=== PATIENT | male | born 1975 | race Caucasian/White ===

== ENCOUNTER 2018-12-14 09:07 | Emergency (ER) | payer BC | END 2018-12-14 13:05 | disposition home or self-care (01) | LOC: FER 09:07 ==

== ENCOUNTER 2018-12-15 10:16 | Emergency (ER) | payer BC ==
[2018-12-15 10:40] VITALS: BMI 29.1
--- NOTE | 2018-12-15 11:19 | PDOC ---
History of Present Illness - History of Present Illness Initial Comments: 12/15/18 11:47 The patient is a 43 year old male, with no significant past medical history, who presents to the emergency department with nausea, vomiting, epigastric pain since Friday. The patient states he drank ETOH on Friday, developed his symptoms on Friday morning which prompted both an urgent care visit on Friday and a [facility] visit last night. He states he was advised against taking zofran upon his ED discharge yesterday due to prolonged QT however, reportedly took zofran prior to ED arrival with improvement of his nausea. Secondarily, he reports daily marijuana use, however, states he tried to smoke yesterday but could not due to his throat pain which he attributes to persistent vomiting. He reports his emesis is NBNB. He reports multiple episodes. He reports associated epigastric pain which is mild and localized. He denies recent travels or sick contacts. The patient denies chest pain, shortness of breath, headache and dizziness. The patient denies fever, chills, diarrhea and constipation. The patient denies dysuria, frequency, urgency and hematuria. Allergies: NKDA <Arianna Montanez - Last Filed: 12/15/18 11:47> - General History Source: Patient Exam Limitations: No Limitations <Terrie Arshad - Last Filed: 12/15/18 14:48> - General Chief Complaint: Nausea/Vomiting Stated Complaint: SENT BY PCP Time Seen by Provider: 12/15/18 11:19 Past History <Arianna Montanez - Last Filed: 12/15/18 11:47> - Past Medical History COPD: No GI Disorders: Yes (ACID REFLUX) - Surgical History Appendectomy: Yes - Suicide/Smoking/Psychosocial Hx Smoking History: Never smoked Have you smoked in the past 12 months: No 'Breaking Loose' booklet given: 12/14/18 Hx Alcohol Use: No Drug/Substance Use Hx: Yes (marijuana) <Terrie Arshad - Last Filed: 12/15/18 14:48> - Past Medical History Allergies/Adverse Reactions: Allergies Allergy/AdvReac Type Severity Reaction Status Date / Time No Known Allergies Allergy Verified 12/15/18 10:34 Home Medications: Ambulatory Orders Omeprazole 40 mg PO DAILY 12/14/18 Sucralfate Oral Suspension [Carafate *Oral Susp*] 1 gm PO BID PRN 10 Days #1 bottle 12/14/18 Citalopram Hydrobromide [Celexa -] 20 mg PO DAILY 12/15/18 Dicyclomine HCl [Bentyl -] 20 mg PO Q8H #21 tablet 12/15/18 Finasteride 0 mg PO DAILY 12/15/18 Mag Hydrox/Alh/Smc/Dpha/Lido [Magic Mouthwash *Sjr Formula*] 5 ml MM Q6H PRN #1 bottle 12/15/18 Metoclopramide HCl [Reglan] 10 mg PO BID PRN #20 tablet 12/15/18 Omeprazole 40 mg PO DAILY #30 tablet. 12/15/18 Review of Systems - Review of Systems Able to Perform ROS?: Yes Comments:: 12/15/18 11:47 CONSTITUTIONAL: Absent: fever, no chills, no fatigue EYES: Absent: visual changes ENT: Absent: ear pain, no sore throat CARDIOVASCULAR: Absent: chest pain, no palpitations RESPIRATORY: Absent: cough, no SOB GASTROINTESTINAL: (+) epigastric abdominal pain, nausea,vomiting,Absent: no constipation, no diarrhea GENITOURINARY: Absent: dysuria, no frequency, no hematuria MUSCULOSKELETAL: Absent: back pain, no arthralgia, no myalgia SKIN: Absent: rash NEURO: Absent: headache <Arianna Montanez - Last Filed: 12/15/18 11:47> *Physical Exam - Vital Signs Last Vital Signs Temp Pulse Resp BP Pulse Ox 97.7 F 63 18 100/63 99 12/15/18 10:34 12/15/18 10:34 12/15/18 10:34 12/15/18 10:34 12/15/18 10:34 - Physical Exam Comments: 12/15/18 11:47 GENERAL: The patient is in no acute distress. HEAD: Normal with no signs of trauma. EYES: PERRLA, EOMI, sclera anicteric, conjunctiva clear. ENT: (+) dry mucous membranes. superficial scabbing to lower lip. Ears normal, nares patent, oropharynx clear without exudates. NECK: Normal range of motion, supple without lymphadenopathy, JVD, or masses. LUNGS: Breath sounds equal, clear to auscultation bilaterally. No wheezes, and no crackles. HEART:Regular rate and rhythm, normal S1 and S2 without murmur, rub or gallop. ABDOMEN: (+) epigastric ttp. Soft, normoactive bowel sounds. No guarding, no rebound. No masses palpable. EXTREMITIES: Normal range of motion, no edema. No clubbing or cyanosis. No erythema, or tenderness. NEUROLOGICAL: Cranial nerves II through XII grossly intact. Normal speech. No focal neurological deficits. MUSCULOSKELETAL: Back non-tender to palpation, no CVA tenderness SKIN: Warm, Dry, normal turgor, no rashes or lesions noted. <Arianna Montanez - Last Filed: 12/15/18 11:47> - Vital Signs Last Vital Signs Temp Pulse Resp BP Pulse Ox 97.7 F 63 18 100/63 99 12/15/18 10:34 12/15/18 10:34 12/15/18 10:34 12/15/18 10:34 12/15/18 10:34 <Terrie Arshad - Last Filed: 12/15/18 14:48> Moderate Sedation - Procedure Monitoring Vital Signs: Procedure Monitoring Vital Signs Temperature 97.7 F 12/15/18 10:34 Pulse Rate 63 12/15/18 10:34 Respiratory Rate 18 12/15/18 10:34 Blood Pressure 100/63 12/15/18 10:34 O2 Sat by Pulse Oximetry (%) 99 12/15/18 10:34 <Arianna Montanez - Last Filed: 12/15/18 11:47> - Procedure Monitoring Vital Signs: Procedure Monitoring Vital Signs Temperature 97.7 F 12/15/18 10:34 Pulse Rate 63 12/15/18 10:34 Respiratory Rate 18 12/15/18 10:34 Blood Pressure 100/63 12/15/18 10:34 O2 Sat by Pulse Oximetry (%) 99 12/15/18 10:34 <Terrie Arshad - Last Filed: 12/15/18 14:48> ED Treatment Course - LABORATORY CBC & Chemistry Diagram: 12/15/18 11:30 12/15/18 11:30 <Arianna Montanez - Last Filed: 12/15/18 11:47> - LABORATORY CBC & Chemistry Diagram: 12/15/18 11:30 12/15/18 11:30 <Terrie Arshad - Last Filed: 12/15/18 14:48> Medical Decision Making - Medical Decision Making 12/15/18 11:51 43 yo m h/o gastritis presenting to the ER with epigastric pain, intractable vomiting Was seen at [facility] yesterday Seen by GI who referred pt to the ER for evaluation No fevers, chills No recent travel No ill contacts No uncooked foods Pt did go out drinking a few days ago Pt thinks this is related to his drinking EKG: NSR rate of 60 bpm, L axis deviation, no st elevation or depression, t waves upright, no pathological Q waves, nml r wave progression Will do: Labs CT Meds IVF Re Assess 12/15/18 13:14 Laboratory Tests 12/15/18 12/15/18 12/15/18 11:30 11:30 11:30 WBC 12.6 H Hgb 14.5 Hct 41.7 Plt Count 272 BUN 8 Creatinine 0.9 AST 100 H ALT 105 H Urine Blood 1+ H Urine Nitrite Negative Ur Leukocyte Esterase Negative 12/15/18 13:14 Laboratory Tests 12/14/18 12/14/18 12/15/18 09:26 09:26 11:30 WBC 22.8 H 12.6 H Total Bilirubin 1.3 H AST 71 H ALT 37 12/15/18 11:30 WBC Total Bilirubin AST 100 H ALT 105 H Increased transaminitis Decreased WBC Will await CT results 12/15/18 14:40 CT negative Upon re assessment, pt states he feels better Will discharge to home Will re fill Reglan, Omeprazole, Bentyl <Terrie Arshad - Last Filed: 12/15/18 14:48> *DC/Admit/Observation/Transfer - Attestations Scribe Attestion: 12/15/18 11:48 Documentation prepared by Arianna Montanez, acting as medical office receptionist for Terrie Arshad MD <Arianna Montanez - Last Filed: 12/15/18 11:47> - Discharge Dispostion Decision to Admit order: No <Terrie Arshad - Last Filed: 12/15/18 14:48> Diagnosis at time of Disposition: Nausea & vomiting Qualifiers: Vomiting type: unspecified Vomiting Intractability: non-intractable Qualified Code(s): R11.2 - Nausea with vomiting, unspecified - Discharge Dispostion Disposition: HOME Condition at time of disposition: Stable - Patient Instructions Printed Discharge Instructions: DI for Vomiting -- Adult Additional Instructions: Thank you for coming in to the ER please use medications as prescribed Please return to the ER for any other concerns or complaints Please review you CT results, please follow up the nodules found on CT with your doctor Also follow up the bone island findings with your doctor - Post Discharge Activity Forms/Work/School Notes: Back to Work
[2018-12-15] MEDS ORDERED: SODIUM CHLORIDE 1,000 ML IV STA (11:44)
[2018-12-15] MEDS ORDERED: FAMOTIDINE 20 MG/50 ML IVPB 20 MG/50 ML MG IVPB ONE ×2 (11:44→12:01)
[2018-12-15] MEDS ORDERED: MAG HYDROX/AL HYDROX/SIMETH 30 ML UNIT-DOSE CUP PO ONE (11:44)
[2018-12-15 11:47] LABS: BASO % 0.5 % (0-2.0); EOS % 0.5 % (0-4.5); HEMATOCRIT 41.7 % (35.4-49); HEMOGLOBIN 14.5 GM/dL (11.7-16.9); LYMPH % 18.2 % (8-40); MCH 30.2 pg (25.7-33.7); MCHC 34.7 g/dl (32.0-35.9); MEAN CELL VOLUME 87.1 fl (80-96); MEAN PLT VOLUME 8.9 fl (7.5-11.1); MONO % 11.5 % (3.8-10.2); NEUT % 69.3 % (42.8-82.8); PLATELET COUNT 272 K/MM3 (134-434); RBC 4.78 M/mm3 (4.00-5.60); WHITE BLOOD COUNT 12.6 K/mm3 (4.0-10.0)
[2018-12-15] MEDS ORDERED: MAG HYDROX/AL HYDROX/SIMETH 30 ML UNIT-DOSE CUP ONE (11:51)
[2018-12-15 11:54] LABS: URINE APPEARANCE CLEAR; URINE BILIRUBIN NEGATIVE (<2.0 mg/dL); URINE COLOR STRAW; URINE GLUCOSE (UA) NEGATIVE (NEGATIVE); URINE KETONE NEGATIVE (NEGATIVE); URINE LEUK ESTERASE NEGATIVE (NEGATIVE); URINE NITRITE NEGATIVE (NEGATIVE); URINE PROTEIN NEGATIVE (NEGATIVE); URINE UROBILINOGEN 4.0 E.U/dl mg/dL (0.2-1.0)
[2018-12-15 12:59] LABS: ALBUMIN 4.4 g/dl (3.4-5.0); ALK PHOS 79 U/L (45-117); AMYLASE 38 U/L (25-115); ANION GAP 8 MMOL/L (8-16); BILIRUBIN,TOTAL 0.7 mg/dL (0.2-1); BLOOD UREA NITROGEN 8 mg/dL (7-18); CHLORIDE 100 mmol/L (98-107); CO2 30 mmol/L (21-32); CREATININE 0.9 mg/dL (0.55-1.3); GLUCOSE,RANDOM 97 mg/dL (74-106); LIPASE 149 U/L (73-393); POTASSIUM 3.4 mmol/L (3.5-5.1); SGOT/AST 100 U/L (15-37); SGPT/ALT 105 U/L (13-61); SODIUM 138 mmol/L (136-145); TOT PROT 7.8 g/dl (6.4-8.2)
[2018-12-15 15:02] VITALS: BP 129/78; PULSE 68; TEMP 97.2
--- NOTE | 2018-12-15 15:05 | EKG ---
Test Reason : Blood Pressure : / mmHG Vent. Rate : 060 BPM Atrial Rate : 060 BPM P-R Int : 162 ms QRS Dur : 090 ms QT Int : 458 ms P-R-T Axes : 066 -51 026 degrees QTc Int : 458 ms NORMAL SINUS RHYTHM POSSIBLE LEFT ATRIAL ENLARGEMENT LEFT ANTERIOR FASCICULAR BLOCK ABNORMAL ECG WHEN COMPARED WITH ECG OF 14-DEC-2018 11:15, NONSPECIFIC T WAVE ABNORMALITY NOW EVIDENT IN LATERAL LEADS Confirmed by Sarath Lucero MD ([id number]) on 12/15/2018 3:04:26 PM Referred By: Confirmed By:Sarath Lucero MD
== END 2018-12-15 15:13 | disposition home or self-care (01) ==
LOC: JER 10:16
PROC: 3E033GC Introduction of Other Therapeutic Substance into Peripheral Vein, Percutaneous Approach (ICD-10-PCS; principal; 2018-12-15)
DX: R11.2 Nausea with vomiting, unspecified (principal); F12.10 Cannabis abuse, uncomplicated
CPT/HCPCS: 36415; 74177-TC; 80053; 81003; 81015; 82150; 83605; 83690; 85025; 87086; 93005; 93010; 99282-25; J7030